=== PATIENT | female | born 1990 | race Caucasian/White ===

== ENCOUNTER 2022-07-10 06:00 | Day surgery (SDC) | payer OTHER ==
[2022-07-10] MEDS ORDERED: Propofol 200 MG/20 ML SDV ONE ×2 (08:06→08:07)
[2022-07-10] MEDS ORDERED: fentaNYL 250 MCG/5 ML SDV ONE (08:06)
[2022-07-10] MEDS ORDERED: Desflurane 240 ML Bottle ONE (08:14)
[2022-07-10] MEDS ORDERED: Famotidine 20 MG/2 ML SDV ONE (09:18)
[2022-07-10] MEDS ORDERED: Lactated Ringers 1,000 ML IV ONE (09:30)
[2022-07-10] MEDS ORDERED: Ondansetron 4 MG/2 ML SDV IVPUSH ONE (09:30)
[2022-07-10] MEDS ORDERED: Dexamethasone 10 MG/ML SDV IVPUSH ONE (09:30)
[2022-07-10] MEDS ORDERED: Ketorolac 30 MG/ML SDV IVPUSH ONE (09:30)
== END 2022-07-10 11:40 ==
LOC: MW.SDS 06:00
PROVIDERS: ATTEND Obstetrics & Gynecology
DX: N84.0 Polyp of corpus uteri (principal); D64.9 Anemia, unspecified; Z98.890 Other specified postprocedural states; Z79.899 Other long term (current) drug therapy; Z91.09 Other allergy status, other than to drugs and biological substances
CPT/HCPCS: 58558; J0131; J1100; J1885; J2405; J2704; J3010; J3490; J7120; 00952

== ENCOUNTER 2023-03-12 18:34 | Emergency (ER) | payer OTHER | END 2023-03-12 19:05 | disposition left against medical advice (07) | LOC: MW.ED 18:34 | DX: Z53.21 Procedure and treatment not carried out due to patient leaving prior to being seen by health care provider (principal) ==

== ENCOUNTER 2023-06-11 16:35 | Inpatient (IN) | payer OTHER ==
[2023-06-11] MEDS ORDERED: Ondansetron 4 MG/2 ML SDV IVPUSH ONE (17:18)
[2023-06-11] MEDS ORDERED: Lactated Ringers 1,000 ML IV ONE (17:18)
[2023-06-11 17:53] LABS: HEMATOCRIT 36.9 % (36.0-46.0); HEMOGLOBIN 12.4 g/dL (12.0-16.0); MEAN CORPUSCULAR HEMOGLOBIN 29.8 pg (27.0-32.0); MEAN CORPUSCULAR HGB CONC 33.6 g/dL (31.0-37.0); MEAN CORPUSCULAR VOLUME 88.7 fL (80.0-98.0); MEAN PLATELET VOLUME 14.1 fL (7.40-12.00); RED BLOOD CELL COUNT 4.16 M/uL (4.30-5.90); WHITE BLOOD CELL COUNT,WBC 8.5 K/uL (4.0-11.0)
[2023-06-11 18:29] LABS: A/G RATIO 0.6 (0.9-1.6); ALBUMIN 2.5 g/dL (3.4-5.0); BILIRUBIN TOTAL 0.2 mg/dL (0.2-1.0); CALCIUM 8.9 mg/dL (8.5-10.1); CARBON DIOXIDE,CO2 21.3 mmol/L (21.0-32.0); CREATININE 0.7 mg/dL (0.6-1.0); EST CRCL DRUG DOSING (CG) 122.81 mL/min; POTASSIUM,K 3.9 mmol/L (3.5-5.1); PROTEIN TOTAL,TP 6.5 g/dL (6.4-8.2); URIC ACID 4.9 mg/dL (2.6-7.2)
[2023-06-11 18:36] LABS: CREATININE,URINE RAND 19.3 mg/dL
[2023-06-11 18:39] LABS: PROTEIN,URINE RANDOM < 6.0 mg/dL (<11.9)
[2023-06-11] MEDS ORDERED: Water For Irrigation,Sterile 1,000 ML Container IRR PRN (18:48)
[2023-06-11] MEDS ORDERED: Sodium Chloride 0.9% 10 ML Syringe FLUSH PRN (18:48)
[2023-06-11] MEDS ORDERED: Methylergonovine 0.2 MG/1 ML Amp IM PRN (18:48)
[2023-06-11] MEDS ORDERED: Tranexamic Acid IN NACL,ISO-OS 1,000 MG in Premix Bag 1 BAG IV PRN ×2 (18:48)
[2023-06-11] MEDS ORDERED: Sodium Chloride 0.9% 20 ML SDV IV PRN (18:48)
[2023-06-11] MEDS ORDERED: Carboprost Tromethamine 250 MCG/1 mL Vial IM PRN (18:48)
[2023-06-11] MEDS ORDERED: Sodium Chloride 0.9% 2.5 ML Syringe FLUSH PRN (18:48)
[2023-06-11] MEDS ORDERED: Misoprostol 200 MCG Tab PO PRN (18:48)
[2023-06-11] MEDS ORDERED: Terbutaline 1 MG/ML SDV SUBCUT PRN (18:48)
[2023-06-11] MEDS ORDERED: Misoprostol 25 MCG (1/4 of 100 MCG) Tab VAG PRN (18:48)
[2023-06-11] MEDS ORDERED: Lidocaine 1% 50 ML MDV INJECT PRN (18:48)
[2023-06-11] MEDS ORDERED: Oxytocin/0.9 % Sodium Chloride 30 UNIT/500 ML BAG IV SCH ×2 (19:00)
[2023-06-11] MEDS ORDERED: hydrOXYzine Pamoate 25 MG Cap PO PRN (19:34)
[2023-06-11] MEDS ORDERED: Calcium Carbonate 500 MG Tab.Chew PO PRN (19:36)
[2023-06-11] MEDS ORDERED: Citric Acid/Sodium Citrate Solution 30 ML Cup PO ONE (19:39)
[2023-06-11] MEDS: Misoprostol 25 MCG (1/4 of 100 MCG) Tab VAG PRN (19:46)
[2023-06-11] MEDS: Acetaminophen 500 MG Tab PO PRN (20:20)
[2023-06-12] MEDS: Ondansetron 4 MG/2 ML SDV IVPUSH PRN ×2 (03:50→14:06)
[2023-06-12] MEDS: Misoprostol 25 MCG (1/4 of 100 MCG) Tab VAG PRN ×2 (03:57→07:45)
[2023-06-12] MEDS: Nalbuphine 10 MG/0.5 ML Syringe IVPUSH PRN ×3 (04:05→08:32)
[2023-06-12 05:55] LABS: HEMATOCRIT 37.8 % (36.0-46.0); HEMOGLOBIN 12.5 g/dL (12.0-16.0); MEAN CORPUSCULAR HEMOGLOBIN 29.4 pg (27.0-32.0); MEAN CORPUSCULAR HGB CONC 33.1 g/dL (31.0-37.0); MEAN CORPUSCULAR VOLUME 88.9 fL (80.0-98.0); MEAN PLATELET VOLUME 13.9 fL (7.40-12.00); RED BLOOD CELL COUNT 4.25 M/uL (4.30-5.90); WHITE BLOOD CELL COUNT,WBC 9.28 K/uL (4.0-11.0)
[2023-06-12] MEDS: Lactated Ringers 1,000 ML IV SCH ×2 (08:15→20:57)
[2023-06-12] MEDS ORDERED: Ropivacaine/PF 400 MG/200 ML PCA ONE ×2 (09:38→23:03)
[2023-06-12] MEDS ORDERED: Bupivacaine 0.5% 10 ML SDV ONE (09:38)
[2023-06-12] MEDS ORDERED: ePHEDrine 50 MG/ML SDV IVPUSH PRN ×2 (10:24)
[2023-06-12] MEDS ORDERED: Phenylephrine HCl 0.5 MG/5 ML AMP IVPUSH PRN (10:24)
[2023-06-12] MEDS ORDERED: Ropivacaine HCl/PF 400 MG in Premix Bag 1 BAG EPIDUR SCH (10:30)
[2023-06-12] MEDS: Acetaminophen 500 MG Tab PO PRN (13:27)
[2023-06-12] MEDS ORDERED: Sodium Chloride 0.9% 1,000 ML IRR ONE (14:08)
[2023-06-13] MEDS: Ondansetron 4 MG/2 ML SDV IVPUSH PRN (00:32)
[2023-06-13] MEDS ORDERED: Benzocaine/Menthol 20%-0.5% Spray 78 GM Cannister ONE (04:16)
[2023-06-13] MEDS ORDERED: Ibuprofen 800 MG Tab PO PRN (04:34)
[2023-06-13] MEDS ORDERED: oxyCODONE 5 MG Tab PO PRN (04:34)
[2023-06-13] MEDS ORDERED: Docusate Sodium 100 MG Cap PO PRN (04:34)
[2023-06-13] MEDS ORDERED: Ibuprofen 400 MG Tab PO PRN (04:34)
[2023-06-13] MEDS ORDERED: Witch Hazel Medicated Pads 40/Jar TOP PRN (04:34)
[2023-06-13] MEDS ORDERED: Bisacodyl 10 MG Supp RECTAL PRN (04:34)
[2023-06-13] MEDS ORDERED: Benzocaine/Menthol 20%-0.5% Spray 78 GM Cannister TOP PRN (04:34)
[2023-06-13] MEDS ORDERED: Lanolin 100% Cream 7 GM Tube TOP PRN (04:34)
[2023-06-13] MEDS ORDERED: Acetaminophen 500 MG Tab PO PRN (04:34)
[2023-06-13 04:49] LABS: PH,UMBILICAL VENOUS 7.235 (7.25-7.45)
[2023-06-13 05:58] LABS: HEMATOCRIT 33.4 % (36.0-46.0); HEMOGLOBIN 11.2 g/dL (12.0-16.0); MEAN CORPUSCULAR HGB CONC 33.5 g/dL (31.0-37.0); MEAN CORPUSCULAR VOLUME 89.5 fL (80.0-98.0); NRBC ABSOLUTE 0 K/uL; PLATELET COUNT,PLT 112 K/uL (150-400); RED BLOOD CELL COUNT 3.73 M/uL (4.30-5.90); WHITE BLOOD CELL COUNT,WBC 18.22 K/uL (4.0-11.0)
[2023-06-13] MEDS: Acetaminophen 500 MG Tab PO PRN ×2 (06:10→13:15)
[2023-06-13 15:26] LABS: HEMATOCRIT 30.1 % (36.0-46.0); HEMOGLOBIN 9.8 g/dL (12.0-16.0); MEAN CORPUSCULAR HEMOGLOBIN 28.8 pg (27.0-32.0); MEAN CORPUSCULAR HGB CONC 32.6 g/dL (31.0-37.0); MEAN CORPUSCULAR VOLUME 88.5 fL (80.0-98.0); PLATELET COUNT,PLT 102 K/uL (150-400); WHITE BLOOD CELL COUNT,WBC 17.41 K/uL (4.0-11.0)
[2023-06-13 15:59] LABS: EOSINOPHILS ABSOLUTE MAN 0.2 (0.0-0.7); EOSINOPHILS PERCENT MAN 1 % (0.0-7.0); LYMPHOCYTES ABSOLUTE MAN 1.2 (0.6-2.4); LYMPHOCYTES PERCENT MAN 7 % (16.0-40.0); SEG NEUTROPHILS ABSOLUTE MAN 16.5 (1.4-5.7); SEG NEUTROPHILS PERCENT MAN 95 % (48.0-80.0)
== END 2023-06-13 16:50 | disposition home or self-care (01) | DRG 806 ==
LOC: MW.OBCHECK 16:35 → MW.OB 16:37 → MW.OBCHECK 18:48 → MW.OB 18:48 → OBSVTOIN 06-13 03:54 → MW.OB 06-13 08:25
PROVIDERS: ADMIT Obstetrics & Gynecology; ATTEND Obstetrics & Gynecology
PROC: 10E0XZZ Delivery of Products of Conception, External Approach (ICD-10-PCS; principal; 2023-06-13)
PROC: 0KQM0ZZ Repair Perineum Muscle, Open Approach (ICD-10-PCS; 2023-06-13)
PROC: 3E0R3BZ Introduction of Anesthetic Agent into Spinal Canal, Percutaneous Approach (ICD-10-PCS; 2023-06-13)
PROC: 00HU33Z Insertion of Infusion Device into Spinal Canal, Percutaneous Approach (ICD-10-PCS; 2023-06-13)
PROC: 3E0P7VZ Introduction of Hormone into Female Reproductive, Via Natural or Artificial Opening (ICD-10-PCS; 2023-06-13)
PROC: 3E033VJ Introduction of Other Hormone into Peripheral Vein, Percutaneous Approach (ICD-10-PCS; 2023-06-13)
PROC: 10H07YZ Insertion of Other Device into Products of Conception, Via Natural or Artificial Opening (ICD-10-PCS; 2023-06-13)
DX: O48.0 Post-term pregnancy (principal); O99.12 Other diseases of the blood and blood-forming organs and certain disorders involving the immune mechanism complicating childbirth; Z37.0 Single live birth; Z3A.40 40 weeks gestation of pregnancy; O13.4 Gestational [pregnancy-induced] hypertension without significant proteinuria, complicating childbirth; D69.6 Thrombocytopenia, unspecified; O77.0 Labor and delivery complicated by meconium in amniotic fluid; O70.1 Second degree perineal laceration during delivery
CPT/HCPCS: 36415; 51702; 59025; 59409; 80053; 82570; 82803; 84156; 84550; 85007; 85027; 86592; 86850; 86900; 86901; A9270-GY; J2300; J2405; J2590; J2795; J3490; J7030; J7120